=== PATIENT | female | born 1960 | race Caucasian/White ===

== ENCOUNTER 2024-11-13 17:38 | Emergency (ER) | payer MEDICAID, SELFPAY ==
--- NOTE | ~2024-11-13 | CT_ITS ---
CLINICAL HISTORY: L flank L lower rib LUQ ttp. ?stone vs pna CT abdomen and pelvis without contrast Comparison: None Findings: Mild atelectasis versus pneumonitis versus scarring, including imaged lingula. Multiple cholelithiasis in the gallbladder by CT. Bilateral nephrolithiasis measure up to 0.4 cm. No hydronephrosis at this time. Mild wall thickening and trabeculation of the urinary bladder is nonspecific by noncontrast CT. Liver, spleen, pancreas, and adrenal glands are unremarkable for noncontrast imaging. Small mesenteric lymph nodes may be reactive. No small bowel obstruction. Severe stool burden is present, including the cecum. Mild under rotation of the cecum is likely on a congenital basis. The appendix is not definitively seen. Multiple phleboliths noted in the pelvis. The uterus is diminutive or surgically absent. No adnexal soft tissue mass by CT. Degenerative changes of the hips, SI joints, and spine. Mild vertebral height losses appear old chronic. Vacuum disc phenomenon and facet arthropathy are multifocal in the lumbar spine. Right 11th rib fracture appears subacute and/or old/chronic. IMPRESSION: 1. Small bilateral nephrolithiasis. No hydronephrosis at this time. 2. Cholelithiasis by CT. 3. Severe stool burden. No small bowel obstruction. This document has been electronically signed by: Yosi Reid MD on 11/13/2024 19:50:28
--- NOTE | ~2024-11-13 | XR_ITS ---
CLINICAL HISTORY: cough, fever, L ribs ttp 4 view, chest and left ribs Comparison: None available Findings: Right dorsal 11th rib fracture appears old with callus formation and sclerotic remodeling. Anterior lateral left 5th rib fracture appears acute on 1 oblique image. Degenerative changes include imaged AC joints. Minimal bibasilar atelectasis. No consolidation or pneumothorax. Trace left pleural effusion suggested. Right-sided chest port in place. Borderline cardiomegaly. IMPRESSION: 1. Acute anterior lateral left 5th rib fracture. 2. Subacute to old right 11th dorsal rib fracture. This document has been electronically signed by: Yosi Reid MD on 11/13/2024 20:43:29
[2024-11-13 17:57] VITALS: BP 104/86; PULSE 83; O2SAT 97
--- NOTE | 2024-11-13 18:04 | ED_ITS ---
HPI - Abdominal Pain General Chief Complaint: General Medical Stated Complaint: FLANK PAIN FROM [facility]MA[facility] VIS Time Seen by Provider: 11/13/24 18:04 Source: patient, EMS, RN notes reviewed and old records reviewed Mode of arrival: EMS History of Present Illness ED Provider: Ce Savage PA-C HPI narrative: 64-year-old female with no significant past medical history presenting to ED via EMS from [facility] complaining of constant left flank pain x morning. Also reports cough since February with chest congestion, SOB, and chest heaviness. Per [facility] patient recently had URI treated with Z-[place] and prednisone and was noted to have fever of 101 today. Denies recent fall/injury, nausea, vomiting, dysuria/hematuria. Admits to history of kidney stones however denies this feeling similar. Related Data Previous Rx's ?Medication ?Instructions ?Recorded polyethylene glycol 3350 17 gram 17 g PO DAILY PRN constipation #30 11/13/24 oral powder packet (Miralax) ea Allergies Allergy/AdvReac Type Severity Reaction Status Date / Time codeine AdvReac Confusion Verified 11/13/24 18:09 oxycodone AdvReac Confusion Verified 11/13/24 18:09 Penicillins AdvReac Confusion Verified 11/13/24 18:09 Sulfa (Sulfonamide AdvReac Itchy Eyes Verified 11/13/24 18:09 Antibiotics) Review of Systems Review of Systems Yes all other systems are reviewed and are negative Constitutional: Reports as per HPI [facility] Past Medical History Attestation statement: The following information was validated with the patient. Source: old records reviewed Social History Social History Advance Directives: No Advance Directives Information Provided: No Do you have a plan to hurt others: No Plan Physical Exam ED Vital Signs: Vital Signs - 24 hr 11/13/24 18:06 Temperature 98.3 F Pulse Rate 81 Respiratory Rate 20 Blood Pressure 133/68 Pulse Oximetry 95 Oxygen Delivery Method Room Air BMI result Body Mass Index 31.5 Const General: cooperative, healthy appearing and no acute distress Orientation/consciousness: patient oriented x3 Limitations: no limitations HENMT Head: Yes normal to inspection and Yes atraumatic Ears: hearing grossly normal bilaterally General nose exam: Normal external nose present Face and sinus: Yes normal facial exam Eyes General: appearance normal, both eyes and all related structures EOM: EOMs intact bilaterally Neck Neck: Yes normal visual inspection and Yes no meningeal signs Chest Other: + left lower posterior lateral reproducible chest wall tenderness. No flail chest. No ecchymosis or erythema. No rash Chest palpation & inspection: normal inspection of the chest Resp Effort & Inspection: normal respiratory effort and no respiratory distress Auscultation: clear to auscultation bilaterally, no crackles and no wheezes Cardio Rate: regular rate Heart sounds: S1 normal heart sound present and S2 normal heart sound present GI Inspection: Yes normal to inspection Palpation (GI): Soft to palpation, Tenderness to palpation present (GI) in the epigastrum and in the LUQ; with no rebound tenderness, no guarding and not rigid General: Yes CVA tenderness on the left Back/Spine/Pelvis Back: CVA tenderness Skin Rashes: no rashes Wounds: no wounds Neuro General: patient oriented x3, tone normal and no meningeal signs Cranial nerves: Yes CN's II-XII intact bilaterally Extrem General: Yes normal to inspection Course Course Course Narrative: -1832--labs reassuring. -UA negative, no blood. Viral testing negative 2026--CT abdomen pelvis wo IV con IMPRESSION: 1. Small bilateral nephrolithiasis. No hydronephrosis at this time. 2. Cholelithiasis by CT. 3. Severe stool burden. No small bowel obstruction > low suspicion for acute cholecystitis with normal labs and without RUQ tenderness on exam 2045--XR ribs LT min 3V w CXR1V IMPRESSION: 1. Acute anterior lateral left 5th rib fracture. 2. Subacute to old right 11th dorsal rib fracture > will discharge patient with incentive spirometer - Results discussed with patient including worrisome signs and symptoms and strict return precautions, and when to return to the emergency department. They verbalized understanding and feel safe for discharge at this time. Medical Decision Making Medical Decision Making [facility] Narrative: 64-year-old female with no significant past medical history presenting to ED via EMS from [facility] complaining of constant left flank pain x morning. Also reports cough since February with chest congestion, SOB, and chest heaviness. On exam vital signs stable, afebrile, NAD, nontoxic appearing, lungs CTA, physical exam as noted above with reproducible left posterior lateral rib tenderness. + left CVAT, abdomen soft with LUQ/epigastric tenderness without rebound or guarding. Concern for pneumonia vs PTX vs costochondritis vs rib fracture vs renal stone/pyelo vs ? Pancreatitis. No rash or evidence of zoster. Lower suspicion for cholecystitis/lithiasis, or ACS/PE Plan: EKG, labs, UA, CXR, CT AP, IVF, pain control, re-evaluate Please refer to course for remaining clinical decision making, interpretation of labs/imaging results, and discussions with consultants and/or family members. Differential Diagnosis Differential Diagnoses: The differential diagnosis associated with the presentation includes As above Admission/Observation Consideration of admission/observation: Escalation of care including admission/observation considered Lab Data MDM Lab Attestation statement: I reviewed the patient's lab results. 11/13/24 18:13 11/13/24 18:13 Labs: Lab Results 11/13/24 11/13/24 Range/Units 18:13 18:30 WBC 5.8 (4.8-10.8) X10*3/uL RBC 3.58 L (4.20-5.50) X10*6/uL Hgb 11.3 L (12.0-16.0) g/dl Hct 31.2 L (37.0-47.0) % MCV 87.2 (80.0-98.0) fL MCH 31.6 (27.0-33.0) pg MCHC 36.2 H (31.0-35.0) g/dl RDW 13.5 (11.0-16.0) % Plt Count 131 L (160-400) X10*3/uL MPV 9.1 L (9.4-12.3) fL Immature Gran % (Auto) 0.2 (0.0-0.4) % Neut % (Auto) 79.8 H (45-73) % Lymph % (Auto) 4.9 L (20-40) % [place] % (Auto) 7.8 (2-11) % Eos % (Auto) 6.4 H (0-4) % Baso % (Auto) 0.9 (0-2) % Lymph # (Auto) 0.3 L (1.2-4.9) X10*3/uL [place] # (Auto) 0.5 (0.1-1.2) X10*3/uL Eos # (Auto) 0.4 (0.0-0.4) X10*3/uL Baso # (Auto) 0.1 (0.0-0.2) X10*3/uL Abs Immat Gran (auto) 0.01 (0.00-0.03) X10*3/uL Absolute Neuts (auto) 4.6 (2.0-8.3) x10*3/uL Absolute Nucleated RBC 0.000 (0.0-0.012) X10*3/uL Nucleated RBC % (auto) 0.0 (0.0-0.2) /100WBC PT 11.8 (10.9-12.4) SEC INR 1.0 (0.9-1.1) Sodium 144 (135-145) mmol/L Potassium 3.8 (3.3-5.1) mmol/L Chloride 112 H (96-108) mmol/L Carbon Dioxide 26 (22-29) mmol/L Anion Gap 10 L (12-20) BUN 19 H (9-16) mg/dL Creatinine 0.76 (0.5-1.4) mg/dL Estim Creat Clear Calc 84.8 Estimated GFR > 60 Random Glucose 107 (60-115) mg/dL Calcium 8.9 (8.4-10.2) mg/dL Magnesium 2.0 (1.6-2.6) mg/dL Total Bilirubin 0.3 (0.0-1.0) mg/dL AST 13 (5-31) U/L ALT 14 (0-31) U/L Alkaline Phosphatase 58 (39-117) U/L Troponin I High Sens < 2.7 (<3.5-17.0) ng/L Total Protein 5.4 L (6.5-8.0) g/dL Albumin 3.8 (3.5-5.0) g/dL Lipase 13 (8-78) U/L Urine Color Yellow Urine Appearance Clear Urine pH 5.5 (5.0-9.0) Ur Specific [place] 1.010 (1.005-1.025) Urine Protein Negative (Neg-Trace) mg/dL Urine Glucose (UA) Negative (Negative) mg/dL Urine Ketones Negative (Negative) mg/dL Urine Blood Negative (Negative) Urine Nitrite Negative (Negative) Ur Leukocyte Esterase Trace H (Negative) Urine RBC 0-2 (0-2) /HPF Urine WBC 0-5 (0-5) /HPF Ur Squamous Epith Cells 0-2 (0-2) /HPF Urine Bacteria None Seen (None Seen) Hyaline Casts 0-2 (0-2) /LPF Influenza Type A (PCR) NEGATIVE (Negative) Influenza Type B (PCR) NEGATIVE (Negative) RSV RNA Qual (PCR) NEGATIVE (Negative) SARS-CoV-2 RNA (RT-PCR) NEGATIVE (Negative) Independent Interpretation I performed an independent interpretation of an: EKG (My interpretation EKG normal sinus rhythm rate of 80. OH interval 180. QTC 429. No previous to compare. No STEMI ), Plain X-Ray and CT Scan Radiology Impression Discussion of test interpretation with radiology: I have reviewed the radiologist's reading. Independent Historian Clinical information obtained from an independent historian. History obtained from or confirmed by: EMS External Record Review External record reviewed: Inpatient record, Office record, Outpatient record, Prior outpatient labs, Prior outpatient radiology, Primary care record and Outside ED record Tests considered The following testing was considered but not selected: As above Prescription Management I considered prescription management with: Pain Medication Chronic Conditions Patient?s care impacted by: Other Social Determinants Patient?s care significantly limited by Social Determinants of Health including: Alcoholism and drug addiction in family, Problems related to primary support group and Other Social Determinant of Health Medications Administered Discontinued Medications Generic Name Dose Route Start Last Admin Trade Name Freq PRN Reason Stop Dose Admin Sodium Chloride 1,000 mls @ 999 mls/hr 11/13/24 18:15 11/13/24 18:35 Ns IV 11/13/24 19:15 999 mls/hr .Q1H1M WILLY Administration Ketorolac Tromethamine 15 mg 11/13/24 18:13 11/13/24 18:35 Ketorolac Tromethamine 15 Mg/Ml Vial IVPUSH 11/13/24 18:14 15 mg ONCE ONE Administration Discharge Plan Discharge Clinical Impression: Bilateral nephrolithiasis, Constipation Patient Disposition: Still a Patient Instructions: Constipation (DC), Kidney Stones (ED) Additional Instructions: Your CT scans shows a small stones in both kidneys. You need to follow-up with urology You also have gallstones. You should follow-up with general surgery CT scan shows severe stool burden, you are constipated, please take MiraLax daily as needed for constipation If you are not having a bowel movement in the next 2-3 days or start passing gas or have severe abdominal pain, nausea/vomiting return to the ED immediately. Prescriptions: New polyethylene glycol 3350 [Miralax] 17 gram powder in packet 17 g PO DAILY PRN (Reason: constipation) Qty: 30 0RF Referrals: [facility] [place] Group] [facility] [[facility] Group] Print Language: Yoruba
[2024-11-13 18:06] VITALS: BP 133/68; PULSE 81; RESP 20; TEMP 36.8; O2SAT 95; BMI 31.5
--- NOTE | 2024-11-13 18:11 | ECG_ITS ---
Test Reason : L CEST WALL PAIN Blood Pressure : */* mmHG Vent. Rate : 80 BPM Atrial Rate : 80 BPM P-R Int : 180 ms QRS Dur : 82 ms QT Int : 372 ms P-R-T Axes : 58 53 47 degrees QTcB Int : 429 ms Normal sinus rhythm Normal ECG No previous ECGs available Referred By: Ce Savage Electronically Signed By: FUAD LUONG MD
[2024-11-13 18:18] LABS: MANUAL DIFF FLAG NO
[2024-11-13 18:20] LABS: Basophils Absolute Auto 0.1 X10*3/uL (0.0-0.2); Basophils Percent Auto 0.9 % (0-2); Eosinophils Absolute Auto 0.4 X10*3/uL (0.0-0.4); Eosinophils Percent Auto 6.4 % (0-4); Hematocrit 31.2 % (37.0-47.0); Hemoglobin 11.3 g/dl (12.0-16.0); Imm Gran Abs Auto 0.01 X10*3/uL (0.00-0.03); Imm Gran Pct Auto 0.2 % (0.0-0.4); Lymphocytes Absolute Auto 0.3 X10*3/uL (1.2-4.9); Lymphocytes Percent Auto 4.9 % (20-40); Mean Corpuscular HGB Conc 36.2 g/dl (31.0-35.0); Mean Corpuscular Hemoglobin 31.6 pg (27.0-33.0); Mean Corpuscular Volume 87.2 fL (80.0-98.0); Mean Platelet Volume 9.1 fL (9.4-12.3); Monocytes Absolute Auto 0.5 X10*3/uL (0.1-1.2); Monocytes Percent Auto 7.8 % (2-11); Neutrophils Absolute Auto 4.6 x10*3/uL (2.0-8.3); Neutrophils Percent Auto 79.8 % (45-73); Platelet Count 131 X10*3/uL (160-400); Red Blood Count 3.58 X10*6/uL (4.20-5.50); Red Cell Distribution Width 13.5 % (11.0-16.0); White Blood Count 5.8 X10*3/uL (4.8-10.8)
[2024-11-13 18:30] LABS: Prothrombin Time 11.8 SEC (10.9-12.4)
[2024-11-13 18:32] LABS: Alanine Aminotransferase 14 U/L (0-31); Albumin Level 3.8 g/dL (3.5-5.0); Alkaline Phosphatase 58 U/L (39-117); Anion Gap 10 (12-20); Aspartate Amino Transferase 13 U/L (5-31); Bilirubin Total 0.3 mg/dL (0.0-1.0); Blood Urea Nitrogen 19 mg/dL (9-16); Calcium 8.9 mg/dL (8.4-10.2); Carbon Dioxide 26 mmol/L (22-29); Chloride 112 mmol/L (96-108); Creatinine Clr Calc Pharmacy 84.8; Estimated Glomerular Filt Rate > 60; Glucose Random 107 mg/dL (60-115); Lipase 13 U/L (8-78); Potassium 3.8 mmol/L (3.3-5.1); Sodium 144 mmol/L (135-145); Total Protein 5.4 g/dL (6.5-8.0)
[2024-11-13] MEDS: 0.9 % Sodium Chloride 1,000 ML 999 ML IV (18:35)
[2024-11-13] MEDS: Ketorolac Tromethamine 15 MG/ML VIAL IVPUSH (18:35)
[2024-11-13 18:41] LABS: Appearance Urine Clear; Color Urine Yellow; Glucose Urine UA Negative (Negative); Leukocyte Esterase Urine Trace (Negative); Nitrite Urine Negative (Negative); PH 5.5 (5.0-9.0); UMIC TRIGGER UACC YES; Urine Blood Negative (Negative); Urine Ketones Negative (Negative); Urine Protein Negative (Neg-Trace)
[2024-11-13 18:42] LABS: Troponin-I High Sensitivity < 2.7 ng/L (<3.5-17.0)
[2024-11-13 18:46] LABS: Bacteria Urine None Seen (None Seen); Hyaline Casts Urine 0-2 /LPF (0-2); RBC Urine 0-2 /HPF (0-2); Squamous Epithelial Cell Urine 0-2 /HPF (0-2); WBC Urine 0-5 /HPF (0-5)
[2024-11-13 18:59] LABS: Influenza A PCR NEGATIVE (Negative); Influenza B PCR NEGATIVE (Negative); Resp Syncy Virus RNA Qual PCR NEGATIVE (Negative); SARS COV2 PCR INHOUSE NEGATIVE (Negative)
--- NOTE | 2024-11-13 19:55 | PC.NURSE ---
ivf infusing to right hand needed to be flushed, ivf infusing very slow now wnl. pt is calm and cooperative.
[2024-11-13 20:50] VITALS: BP 151/84; PULSE 70; RESP 16; TEMP 36.6; O2SAT 97
[2024-11-13 21:25] VITALS: BP 151/84; PULSE 70; RESP 16; TEMP 36.6
[2024-11-13] MEDS: polyethylene glycoL 3350 17 GM POWD.PACK PO (21:25)
--- NOTE | 2024-11-13 21:36 | PC.NURSE ---
IV removed and ride back to [facility] is due at 2200
[2024-11-13 21:50] VITALS: BP 151/84; PULSE 70; RESP 16; TEMP 36.6; O2SAT 98
== END 2024-11-13 22:15 ==
PROVIDERS: Physician Assistant; Emergency Provider Emergency Medicine Emergency Medical Services
DX: K59.00 Constipation, unspecified (principal); N20.0 Calculus of kidney; R10.9 Unspecified abdominal pain; R05.9 Cough, unspecified; R50.9 Fever, unspecified; Z03.818 Encounter for observation for suspected exposure to other biological agents ruled out
CPT/HCPCS: 0241U; 36415; 71101; 74176; 80053; 81001; 83690; 83735; 84484; 85025; 85610; 93005; 96361; 96374; 99285; J1885

== ENCOUNTER → 2024-11-13 18:11 | Outpatient (BNV) | payer MEDICAID, SELFPAY | PROVIDERS: Emergency Provider Emergency Medicine Emergency Medical Services; Visit Provider Internal Medicine Cardiovascular Disease | DX: R07.89 Other chest pain (principal) | CPT/HCPCS: 93010 ==

== ENCOUNTER → 2024-11-13 18:30 | Outpatient (BNV) | payer MEDICAID, SELFPAY | PROVIDERS: Emergency Provider Emergency Medicine Emergency Medical Services; Visit Provider Radiology Neuroradiology | DX: N20.0 Calculus of kidney (principal); K80.20 Calculus of gallbladder without cholecystitis without obstruction; K56.41 Fecal impaction; S22.43XA Multiple fractures of ribs, bilateral, initial encounter for closed fracture | CPT/HCPCS: 71101; 74176 ==